=== PATIENT | male | born 1945 | race Caucasian/White ===

== ENCOUNTER 2023-10-25 16:45 | Emergency (ER) | payer MEDICARE, OTHER, SELFPAY ==
[2023-10-25 16:50] VITALS: BP 115/56
[2023-10-25 17:03] VITALS: BP 126/60
[2023-10-25 17:10] VITALS: BMI 29.0
[2023-10-25] MEDS: VALIUM INJECTION 2 MG IV (17:20)
[2023-10-25] MEDS: NSS 1000 IV (17:21)
--- NOTE | 2023-10-25 17:24 | ED.GENMED ---
History of Present Illness
General
Chief Complaint: Dizziness
Source: patient
Exam Limitations: none
Time Seen by Provider: 10/25/23 16:58
Travel History
Have you had any contact with someone who has COVID-19?: No
Do you have any symptoms of coronavirus? Fever > 100 degrees, chills, cough, shortness of breath, sore throat, loss of taste or smell, muscle aches, or headache?: No
History of Present Illness
History of Present Illness:
See MDM
Past History
Past History
ED Past Medical History: CAD, GERD, HTN, Hypercholesterolemia, [place] (X3) and Other ( Vertigo, constipation, hemorrhoids, stomach ulcers. Cellulitis,)
ED Past Surgical History: Cardiac (Stents, Open heart surgery, CABG) and Other (Carpal tunnel surgery. Patient has a history of rotator cuff surgery bilateral shoulder surgery, cardiac catheterization with stents,)
Social History
Tobacco: Former smoker
Alcohol: Occasional
Drug: None
Personal:
Living: with family
Employment: Employed
Family History
Family History: Hypertension
Phy Exam
Physical Exam
Physical Exam:
See MDM
Course
Orders/Labs/Results
Orders:
Orders
10/25/23 17:12
Electrocardiogram (*1) Urgent
Reason for Study: Vertigo / Dizzy
EKG- Treatment ONCE
0.9% Sodium Chloride 1000 ml [Nss] 1,000 ml IV BOLUS
diazePAM [Valium Injection] 2 mg IV NOW STA
10/25/23 17:14
Complete Blood Count/With Diff Urgent
Comprehensive Metabolic Panel Urgent
10/25/23 18:41
0.9% Sodium Chloride 500 ml [Nss] 500 ml IV BOLUS
Abnormal Lab Results
10/25/23
17:14
RBC 4.12 L 10^6/uL
(4.70-6.10)
Hgb 12.5 L g/dL
(13.0-18.0)
Hct 34.6 L %
(39.0-52.0)
RDW 14.6 H %
(11.5-14.5)
Neutrophils % 41.6 L %
(42.2-75.2)
Chloride 108 H mmol/L
(98-107)
BUN 30 H mg/dl
(9-20)
Creatinine 1.9 H mg/dL
(0.7-1.3)
Glucose 138 H mg/dl
(70-99)
Total Protein 6.1 L g/dl
(6.3-8.2)
10/25/23 17:14
10/25/23 17:14
Vital Signs
Initial and Last Documented VS:
Initial Vital Signs
Temp Pulse Resp BP Pulse Ox
98.1 F 76 16 115/56 94
10/25/23 16:50 10/25/23 16:50 10/25/23 16:50 10/25/23 16:50 10/25/23 16:50
Last Documented Vital Signs
Temp Pulse Resp BP Pulse Ox
98.1 F 66 20 117/60 98
10/25/23 16:50 10/25/23 18:30 10/25/23 18:30 10/25/23 18:00 10/25/23 18:30
MDM/Problems Addressed
Differential Diagnosis Includes:
HPI and MDM Narrative:
78-year-old male presenting with persistent dizziness. He was started on steroids a few months ago when he was diagnosed with RSV. Since then, he was dealing with hyperglycemia and intermittent dizziness. This has progressed. His PCP started
another steroid prescription but he stopped it early due to the side effects. 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 He has been trying Valium at home with no relief. He is trying his own Gerardo maneuvers with
no relief. Family at bedside is concerned because his dizziness has gotten to the point where he keeps falling
On exam, he has no cerebellar signs but he is dizzy. It is not red supple. Will give IV fluids and obtain basic blood work. If patient still symptomatic despite IV Valium, will admit for persistent dizziness
Physical exam
General: Well appearing and non-toxic
HEENT: protecting airway. Dry mucous membranes. Pupils equal reactive. TMs clear
Neck: supple
CV: No evidence of cyanosis. Regular rate and rhythm
Resp: No accessory muscle use
Abd: Non-distended
Extremities: No deformities
Neuro: alert. Normal finger-nose bilaterally
Psych: Normal affect
Skin: Intact
Problems Addressed including Acute and Chronic Conditions affecting care:
1. Dizziness
Acuity: acute
Prognosis: unstable
Details: Will give IV Valium and reassess
2. Dehydration
Acuity: acute
Prognosis: stable
Details: Will give IV fluids
Updates
6:45 PM surprisingly, patient states he is feeling much better. He states he feels comfortable going home. Will give another 500 cc of IV fluids. All symptoms resolving. Patient believes this could be related to his aortic stenosis. I did let
his kidney puller know that patient was here. His kidney puller asked patient to call the office on and they will speak on the phone
Differential Diagnosis (but not limited to): M�ni�re's disease, vertigo, CVA
Testing considered: CT head
Drug therapy (if applicable): OTC meds, please see d/c instruction regarding Rx drugs
Amount and/or Complexity of Data Reviewed
Clinical info obtained from: Patient
External data reviewed: N/A
Labs I independently reviewed (but not limited to): Elevated creatinine which is not far from baseline
Radiology: N/A
Pulse Ox: not hypoxic
EKG independently reviewed: sinus rhythm, normal axis, no STEMI
Physical Therapy Aide: Sinus rhythm
Critical Care: N/A
Risk of Complication:
Social Determinants of health: Good social support
Discussed with other providers: N/A
Escalation of Care includes Admit/Obs: After being observed in the Emergency Department, pt stable for discharge.
Occasional wrong word or 'sound a like' substitutions may have occurred due to the inherent limitations of voice recognition software. Read the chart carefully and recognize, using context, where substitutions have occurred.
*Critical Care Note
Total Time (30-74mins, 75-104mins- exclusive of procedures): Not Applicable
ED Attending Note
-
Portions of this chart may have been created with voice recognition software.� Occasional wrong word or��sound alike� substitutions may have occurred due to the inherent limitations of voice recognition software.
Discharge Plan
Departure
Patient Disposition: Home (Routine Discharge)
Date of Disposition: 10/25/23
Time of Disposition: 18:51
Patient with high blood pressure during this ER visit?: No
Discharge Problem:
Dizziness
Instructions: Dizziness
Prescriptions:
No Action
Repatha SureClick 140 MG/ML pen injector
140 mg SQ Q2W
aspirin 81 MG tablet,delayed release (DR/EC)
81 mg PO HS
acetaminophen [Tylenol Extra Strength] 500 mg Tablet
1,000 mg PO BIDPRN PRN (Reason: mild pain)
diazepam 2 mg Tablet
2 mg PO TID PRN (Reason: meniere disease)
Patient Comments:
10/25/2023, pt. filled this med. on 10/17/2023 for 30 tablets according to PDMP.
naproxen sodium [Aleve] 220 mg Tablet
440 mg PO BID PRN (Reason: mild pain)
metoprolol succinate 25 mg Tablet Extended Release 24 Hr
25 mg PO DAILY
methylprednisolone 4 mg Tablets,Dose Pack
0 mg PO PER PKG DIR
Patient Comments:
10/25/2023, pt. stopped taking this med. roughly 2 days ago because 'it was not working'; pt. filled this med. on 10/20/2023 for 6 days.
losartan 100 mg Tablet
100 mg PO HS
insulin lispro [Humalog KwikPen Insulin] 100 unit/mL Insulin Pen
0 sliding scale dose SC DIRECTED
Rx Instructions:
10/25/2023, if BS 200-250 = 4 units; 251-300 = 6 units; 301-350 = 8 units.
cholecalciferol (vitamin D3) 25 mcg (1,000 unit) Tablet
25 mcg PO HS
insulin glargine [Lantus Solostar U-100 Insulin] 100 unit/mL (3 mL) Insulin Pen
25 unit SC HS
dapagliflozin propanediol [Farxiga] 10 mg Tablet
10 mg PO DAILY
Referrals:
Quinn Guillory MD [Family Provider] -
Activity Restrictions/Additional Instructions:
As we discussed, it is not clear what is causing your dizziness.
Dr. Solis is aware that you are here today. He wants you to call the office on . When you speak to the triage nurse, please let the nurse know that Dr. Solis is expecting your call. He wants to speak to you on the phone.
Please return for any worsening symptoms.
You may return at any time if you have further concerns.
Interventions
Interventions:
*Risk Screen - Suicide Last Done: 10/25/23 16:50
*General Assessment Last Done: 10/25/23 16:50
*Neglect/Abuse Screening Last Done: 10/25/23 16:50
ED- Fall Risk Assessment Last Done: 10/25/23 17:10
*ED COVID-19 Vaccine History Last Done: 10/25/23 17:10
ED- Neurological Assessment Last Done: 10/25/23 17:10
ED- Cardiac Assessment Last Done: 10/25/23 17:10
ED Swallowing Screen Last Done: 10/25/23 18:33
[2023-10-25 17:40] LABS: ALT (SGPT) 23 U/L (0-50); AST (SGOT) 20 U/L (17-59); Albumin 3.6 g/dl (3.5-5.0); Alkaline Phosphatase 83 U/L (38-126); Blood Urea Nitrogen 30 mg/dl (9-20); Calcium 9.2 mg/dl (8.4-10.2); Carbon Dioxide 24 mmol/L (22-30); Chloride 108 mmol/L (98-107); Estimated Creatinine Clearance 30 ml/min; Glucose 138 mg/dl (70-99); Sodium 135 mmol/L (135-145); Total Bilirubin 0.6 mg/dl (0.2-1.3); Total Protein 6.1 g/dl (6.3-8.2); eGFR 35.88
[2023-10-25 17:41] LABS: % Basophils 0.7 % (0-2); % Eosinophils 2.4 % (0-6); % Immature Granulocytes 0.3 % (0-0.5); % Lymphocytes 47.4 % (20.5-51.1); % Monocytes 7.6 % (1.7-9.3); % Neutrophils 41.6 % (42.2-75.2); Absolute Basophils 0.1 10^3/uL (0-0.2); Absolute Eosinophils 0.2 10^3/uL (0-0.7); Absolute Lymphocytes 3.3 10^3/uL (1.2-3.4); Absolute Monocytes 0.5 10^3/uL (0.1-0.6); Absolute Neutrophils 2.9 10^3/uL (1.4-6.5); Hematocrit 34.6 % (39.0-52.0); Hemoglobin 12.5 g/dL (13.0-18.0); Mean Corp Hgb Conc. 36.1 g/dL (33.0-37.0); Mean Corpuscular Hgb 30.3 pg (27.0-31.0); Mean Platelet Volume 9.1 fL (7.4-10.4); Nucleated Red Blood Cells % 0 % (-); Platelet Count 208 10^3/uL (130-400); Red Blood Cell Count 4.12 10^6/uL (4.70-6.10); Red Cell Dist. Width 14.6 % (11.5-14.5)
[2023-10-25 18:00] VITALS: BP 117/60
[2023-10-25] MEDS: NSS 500 IV (18:43)
[2023-10-25 19:00] VITALS: BP 140/59
== END 2023-10-25 20:21 | disposition home or self-care (01) ==
LOC: EMR 16:45
PROVIDERS: EMERGENCY PHYSICIAN Student in an Organized Health Care Education/Training Program; FAMILY PHYSICIAN Family Medicine
DX: R42 Dizziness and giddiness (principal); I10 Essential (primary) hypertension; Z87.891 Personal history of nicotine dependence
CPT/HCPCS: 99284; 96374; 96361 ×2; 80053; 85025; 93005

== ENCOUNTER → 2023-11-22 07:40 | Outpatient (REF) | payer MEDICARE, OTHER, SELFPAY | LOC: RAD 07:40 | PROVIDERS: ATTENDING PHYSICIAN Internal Medicine Cardiovascular Disease; FAMILY PHYSICIAN Family Medicine | DX: R09.89 Other specified symptoms and signs involving the circulatory and respiratory systems (principal); I25.10 Atherosclerotic heart disease of native coronary artery without angina pectoris | CPT/HCPCS: 93880 ==

== ENCOUNTER → 2023-11-30 06:23 | Outpatient (REF) | payer MEDICARE, OTHER, SELFPAY ==
[2023-11-30 07:31] LABS: Albumin 4.2 g/dl (3.5-5.0); Blood Urea Nitrogen 29 mg/dl (9-20); Calcium 9.8 mg/dl (8.4-10.2); Carbon Dioxide 25 mmol/L (22-30); Chloride 108 mmol/L (98-107); Glucose 100 mg/dl (70-99); Phosphorus 4.8 mg/dl (2.5-4.5); Potassium 4.4 mmol/L (3.5-5.1); Sodium 139 mmol/L (135-145); eGFR 38.29
[2023-11-30 07:36] LABS: Urine Protein 10 mg/dl
[2023-11-30 07:40] LABS: Complement C3 114 mg/dl (88-165)
[2023-12-02 07:51] LABS: ANA, IgG Reflex to HEp-2 None Detected (None Detected)
== END ==
LOC: REG 06:23
PROVIDERS: ATTENDING PHYSICIAN Specialist
DX: I10 Essential (primary) hypertension (principal)
CPT/HCPCS: 36415; 80069; 82570; 84156; 86038; 86160

== ENCOUNTER → 2023-12-09 11:58 | Outpatient (REF) | payer MEDICARE, OTHER, SELFPAY | LOC: MRI 11:58 | PROVIDERS: ATTENDING PHYSICIAN Family Medicine | DX: H93.3X1 Disorders of right acoustic nerve (principal); H81.10 Benign paroxysmal vertigo, unspecified ear | CPT/HCPCS: 70553; A9575 ==

== ENCOUNTER 2023-12-17 19:07 | Emergency (ER) | payer MEDICARE, OTHER, SELFPAY ==
[2023-12-17 19:10] VITALS: BP 139/101
[2023-12-17 19:25] LABS: % Basophils 0.8 % (0-2); % Eosinophils 4.1 % (0-6); % Immature Granulocytes 0.2 % (0-0.5); % Lymphocytes 51.6 % (20.5-51.1); % Monocytes 8.1 % (1.7-9.3); % Neutrophils 35.2 % (42.2-75.2); Absolute Basophils 0.1 10^3/uL (0-0.2); Absolute Eosinophils 0.3 10^3/uL (0-0.7); Absolute Lymphocytes 3.4 10^3/uL (1.2-3.4); Absolute Monocytes 0.5 10^3/uL (0.1-0.6); Absolute Neutrophils 2.3 10^3/uL (1.4-6.5); Hematocrit 38.1 % (39.0-52.0); Hemoglobin 12.8 g/dL (13.0-18.0); Mean Corp Hgb Conc. 33.6 g/dL (33.0-37.0); Mean Corpuscular Volume 86.4 fL (80.0-94.0); Mean Platelet Volume 8.5 fL (7.4-10.4); Nucleated Red Blood Cells % 0 % (-); Platelet Count 193 10^3/uL (130-400); Red Blood Cell Count 4.41 10^6/uL (4.70-6.10); Red Cell Dist. Width 12.9 % (11.5-14.5); White Blood Cell Count 6.6 10^3/uL (4.8-10.8)
[2023-12-17 19:54] LABS: Blood Urea Nitrogen 33 mg/dl (9-20); Calcium 9.6 mg/dl (8.4-10.2); Carbon Dioxide 24 mmol/L (22-30); Chloride 107 mmol/L (98-107); Creatine Phosphokinase 171 U/L (55-170); Glucose 99 mg/dl (70-99); Magnesium 2.3 mg/dl (1.6-2.3); Potassium 4.7 mmol/L (3.5-5.1); Sodium 136 mmol/L (135-145); eGFR 31.82
--- NOTE | 2023-12-17 21:22 | ED.GENMED ---
Addendum entered and electronically signed by Jovan Mims DO 12/17/23 23:46:
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
renal insufficiency, he does want a more steroid states he been diabetic 20 took 3 courses for upper respiratory infection
Original Note:
History of Present Illness
General
Chief Complaint: Musculo-Skeletal Complaint
Source: patient, records and spouse
Exam Limitations: none
Time Seen by Provider: 12/17/23 20:48
Nursing documentation reviewed up to this point in time: agreed with
Travel History
Have you had any contact with someone who has COVID-19?: No
Do you have any symptoms of coronavirus? Fever > 100 degrees, chills, cough, shortness of breath, sore throat, loss of taste or smell, muscle aches, or headache?: No
History of Present Illness
History of Present Illness:
Patient 78-year-old male who presents with multiple issues acute issue was an exacerbation of his chronic low back pain is lumbar radiculopathy spinal stenosis, exacerbated by playing golf, he took some extra gabapentin in hopes that he would be
able to play a full round elevated to 13 holes feel some numbness in the lateral side of his calf on the left, also into his back, also tells me has had about 2 weeks of upper extremity weakness, bilaterally trouble lifting a box up over his head,
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
Past History
Past History
ED Past Medical History: CAD, GERD, HTN, Hypercholesterolemia, [place] (X3) and Other ( Vertigo, constipation, hemorrhoids, stomach ulcers. Cellulitis,)
ED Past Surgical History: Cardiac (Stents, Open heart surgery, CABG) and Other (Carpal tunnel surgery. Patient has a history of rotator cuff surgery bilateral shoulder surgery, cardiac catheterization with stents,)
Social History
Tobacco: Former smoker
Alcohol: Occasional
Drug: None
Personal:
Living: with family
Employment: Employed
Family History
Family History: Hypertension
Review of Systems
Review of Systems
All Other Systems: Not applicable
Constitutional: Reports fatigue; Denies fever or chills
EENT: Reports no symptoms
Respiratory: Reports no symptoms
Cardiac: Reports no symptoms
ABD/GI: Reports no symptoms
: Reports no symptoms
Musculoskeletal: Reports muscle stiffness and back pain
Neurological: Reports weakness and numbness; Denies dizzy
Endocrine: Reports no symptoms
Hematologic/Lymphatic: Reports no symptoms
Phy Exam
Physical Exam
Physical Exam:
Physical Exam
General: no apparent distress, not acutely ill
Neck: No jaundice
Heart: s1/s2 regular rate and rhythm, no murmur. equal radial pulses.
Lungs: no acute respiratory distress. clear bilaterally
Abdomen: Nontender
Neuro: alert and oriented. 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
Skin: no rash
Psychiatric: well kept. interactive and cooperative
Extremities: no edema.
Course
Orders/Labs/Results
Orders:
Orders
12/17/23 19:19
Basic Metabolic Panel Urgent
CPK [Creatine Phosphokinase] Urgent
Complete Blood Count/With Diff Urgent
Magnesium Urgent
12/17/23 21:15
0.9% Sodium Chloride 500 ml [Nss] 500 ml IV BOLUS
diazePAM [Valium Injection] 5 mg IV NOW STA
12/17/23 21:25
CT Cervical Spine W/o Iv Contr Urgent
Comment:
Reason For Exam: arm weakness
CT Head W/o Iv Contrast Urgent
Comment:
Reason For Exam: weakness
12/17/23 22:06
Urinalysis Reflex To Culture Urgent
Date Specimen was Collected: 12/17/23
Time Specimen was Collected: 22:05
Abnormal Lab Results
12/17/23 12/17/23
19:19 22:06
RBC 4.41 L 10^6/uL
(4.70-6.10)
Hgb 12.8 L g/dL
(13.0-18.0)
Hct 38.1 L %
(39.0-52.0)
Neutrophils % 35.2 L %
(42.2-75.2)
Lymphocytes % 51.6 H %
(20.5-51.1)
BUN 33 H mg/dl
(9-20)
Creatinine 2.1 H mg/dL
(0.7-1.3)
Creatine Kinase 171 H U/L
(55-170)
Urine Glucose 3+ A
(Negative)
12/17/23 19:19
12/17/23 19:19
Vital Signs
Initial and Last Documented VS:
Initial Vital Signs
Temp Pulse Resp BP Pulse Ox
97.6 F 71 18 139/101 98
12/17/23 19:10 12/17/23 19:10 12/17/23 19:10 12/17/23 19:10 12/17/23 19:10
Last Documented Vital Signs
Temp Pulse Resp BP Pulse Ox
97.6 F 60 17 149/67 97
12/17/23 19:10 12/17/23 23:11 12/17/23 23:11 12/17/23 23:11 12/17/23 23:11
*Critical Care Note
Total Time (30-74mins, 75-104mins- exclusive of procedures): Not Applicable
Update Note
Update Note:
10:30 PM update labs noted not too far from his baseline, urine noted
Prior imaging reports reviewed,
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
Check CT of cervical spine to rule out stenosis,
Ultimately suspect he may require outpatient follow-up with PCP and/or neurologist
Not seeing any indication for inpatient admission
[address] reports noted
ED Attending Note
-
Portions of this chart may have been created with voice recognition software.� Occasional wrong word or��sound alike� substitutions may have occurred due to the inherent limitations of voice recognition software.
Discharge Plan
Departure
Patient Disposition: Home (Routine Discharge)
Date of Disposition: 12/17/23
Time of Disposition: 23:26
Patient with high blood pressure during this ER visit?: No
Condition: Good
Discharge Problem:
Radicular low back pain
Instructions: Spinal stenosis, Spinal Stenosis Strengthening Exercises, Radiculopathy
Prescriptions:
No Action
Repatha SureClick 140 MG/ML pen injector
140 mg SQ Q2W
aspirin 81 MG tablet,delayed release (DR/EC)
81 mg PO HS
acetaminophen [Tylenol Extra Strength] 500 mg Tablet
1,000 mg PO BIDPRN PRN (Reason: mild pain)
diazepam 2 mg Tablet
2 mg PO TID PRN (Reason: meniere disease)
Patient Comments:
10/25/2023, pt. filled this med. on 10/17/2023 for 30 tablets according to PDMP.
naproxen sodium [Aleve] 220 mg Tablet
440 mg PO BID PRN (Reason: mild pain)
metoprolol succinate 25 mg Tablet Extended Release 24 Hr
25 mg PO DAILY
methylprednisolone 4 mg Tablets,Dose Pack
0 mg PO PER PKG DIR
Patient Comments:
10/25/2023, pt. stopped taking this med. roughly 2 days ago because 'it was not working'; pt. filled this med. on 10/20/2023 for 6 days.
losartan 100 mg Tablet
100 mg PO HS
insulin lispro [Humalog KwikPen Insulin] 100 unit/mL Insulin Pen
0 sliding scale dose SC DIRECTED
Rx Instructions:
10/25/2023, if BS 200-250 = 4 units; 251-300 = 6 units; 301-350 = 8 units.
cholecalciferol (vitamin D3) 25 mcg (1,000 unit) Tablet
25 mcg PO HS
insulin glargine [Lantus Solostar U-100 Insulin] 100 unit/mL (3 mL) Insulin Pen
25 unit SC HS
dapagliflozin propanediol [Farxiga] 10 mg Tablet
10 mg PO DAILY
Referrals:
Quinn Guillory MD [Family Provider] - Next open appointment
Joseluis Pride MD [Active] - Next open appointment
Interventions
Interventions:
*Risk Screen - Suicide Last Done: 12/17/23 19:10
*General Assessment Last Done: 12/17/23 19:10
*Neglect/Abuse Screening Last Done: 12/17/23 19:10
ED- Fall Risk Assessment Last Done: 12/17/23 21:06
*ED COVID-19 Vaccine History Last Done: 12/17/23 21:06
ED-Musculoskeletal Assessment Last Done: 12/17/23 21:06
Discharge Date and Time
Print Language: PERSIAN
[2023-12-17] MEDS: NSS 500 IV (21:26)
[2023-12-17] MEDS: VALIUM INJECTION 5 MG IV (21:26)
[2023-12-17 22:13] LABS: Urine Albumin Negative (Neg - Trace); Urine Bilirubin Negative (Negative); Urine Character Clear (Clear); Urine Color Yellow; Urine Glucose 3+ (Negative); Urine Ketone Negative (Negative); Urine Leukocyte Negative (Negative); Urine Nitrite Negative (Negative); Urine Occult Blood Negative (Negative); Urine Urobilinogen Negative (Neg - 1+)
[2023-12-17 23:11] VITALS: BP 149/67
== END 2023-12-18 00:06 | disposition home or self-care (01) ==
LOC: EMR 19:07
PROVIDERS: Emergency Medicine; EMERGENCY PHYSICIAN Emergency Medicine; FAMILY PHYSICIAN Family Medicine
DX: M54.50 Low back pain, unspecified (principal); I25.10 Atherosclerotic heart disease of native coronary artery without angina pectoris; K21.9 Gastro-esophageal reflux disease without esophagitis; I25.2 Old myocardial infarction; I12.9 Hypertensive chronic kidney disease with stage 1 through stage 4 chronic kidney disease, or unspecified chronic kidney disease; E11.22 Type 2 diabetes mellitus with diabetic chronic kidney disease; E78.00 Pure hypercholesterolemia, unspecified
CPT/HCPCS: 99284; 96374; 96361; 70450; 72125; 80048; 81003; 82550; 83735; 85025

== ENCOUNTER → 2024-04-09 06:21 | Outpatient (REF) | payer MEDICARE, OTHER, SELFPAY ==
[2024-04-09 07:37] LABS: ALT (SGPT) 22 U/L (0-50); AST (SGOT) 23 U/L (17-59); Alkaline Phosphatase 87 U/L (38-126); Blood Urea Nitrogen 33 mg/dl (9-20); Calcium 9.8 mg/dl (8.4-10.2); Carbon Dioxide 25 mmol/L (22-30); Chloride 105 mmol/L (98-107); Glucose 128 mg/dl (70-99); HDL Cholesterol 32 mg/dl; LDL Cholesterol, Calculated 50 mg/dl; Potassium 4.6 mmol/L (3.5-5.1); Sodium 137 mmol/L (135-145); Total Bilirubin 0.4 mg/dl (0.2-1.3); Total Cholesterol 122 mg/dl (50-199); Total Protein 6.5 g/dl (6.3-8.2); Triglyceride 203 mg/dl (10-149); Very Low Density Lipoprotein 40 mg/dl (0-30); eGFR 38.29
[2024-04-09 08:51] LABS: Glycohemoglobin (HgbA1c) 6.6 % (4.0-5.6)
[2024-04-10 16:13] LABS: Intact PTH 63.6 pg/ml (13.6-85.8)
== END ==
LOC: REG 06:21
PROVIDERS: ATTENDING PHYSICIAN Specialist; FAMILY PHYSICIAN Family Medicine
DX: E78.5 Hyperlipidemia, unspecified (principal); E11.9 Type 2 diabetes mellitus without complications; I10 Essential (primary) hypertension
CPT/HCPCS: 36415; 80053; 80061; 83036; 83970

== ENCOUNTER 2024-06-18 17:13 | Emergency (ER) | payer MEDICARE, OTHER, SELFPAY ==
[2024-06-18 17:15] VITALS: BP 125/64
--- NOTE | 2024-06-18 17:51 | ED.GENMED ---
History of Present Illness
General
Chief Complaint: Facial Problem
Source: patient
Exam Limitations: none
Time Seen by Provider: 06/18/24 17:29
Nursing documentation reviewed up to this point in time: agreed with
History of Present Illness
History of Present Illness:
78-year-old male presents emergency room complaining of left-sided headache and swelling. He just started the drug Nurtec for migraines.
Past History
Past History
ED Past Medical History: CAD, GERD, HTN, Hypercholesterolemia, [place] (X3) and Other ( Vertigo, constipation, hemorrhoids, stomach ulcers. Cellulitis,)
ED Past Surgical History: Cardiac (Stents, Open heart surgery, CABG) and Other (Carpal tunnel surgery. Patient has a history of rotator cuff surgery bilateral shoulder surgery, cardiac catheterization with stents,)
Social History
Tobacco: Former smoker
Alcohol: Occasional
Drug: None
Personal:
Living: with family
Employment: Employed
Family History
Family History: Hypertension
Review of Systems
Review of Systems
Allergies reviewed?: Yes
All Other Systems: Not applicable
Constitutional: Reports no symptoms
EENT: Reports no symptoms
Respiratory: Reports no symptoms
Cardiac: Reports no symptoms
ABD/GI: Reports no symptoms
: Reports no symptoms
Musculoskeletal: Reports no symptoms
Skin: Reports no symptoms
Neurological: Reports headache
Endocrine: Reports no symptoms
Hematologic/Lymphatic: Reports no symptoms
Psychiatric: Reports no symptoms
Phy Exam
Physical Exam
Physical Exam:
Physical Exam
General: no apparent distress, not acutely ill
Neck: supple. no meningeal signs. normal posterior pharynx
Heart: s1/s2 regular rate and rhythm, no murmur. equal radial
pulses.
HEENT: Pupils equal round reactive to light, EOMI
Lungs: no acute respiratory distress. clear bilaterally
Abdomen: normal bowel sounds. not tender. no CVAT
Neuro: alert and oriented. no focal neurological deficits cranial nerves II through XII intact
Skin: no rash
Psychiatric: well kept. interactive and cooperative
Extremities: no edema. no calf tenderness. negative homans. good distal pulses
Course
Orders/Labs/Results
Orders:
Orders
06/18/24 17:50
CT Head W/o Iv Contrast Urgent
Comment:
Reason For Exam: left side headache
Vital Signs
Initial and Last Documented VS:
Initial Vital Signs
Temp Pulse Resp BP Pulse Ox
98.1 F 56 18 125/64 98
06/18/24 17:15 06/18/24 17:15 06/18/24 17:15 06/18/24 17:15 06/18/24 17:15
Last Documented Vital Signs
Temp Pulse Resp BP Pulse Ox
98.1 F 56 16 125/64 98
06/18/24 17:15 06/18/24 17:15 06/18/24 18:00 06/18/24 17:15 06/18/24 17:15
MDM/Problems Addressed
Differential Diagnosis Includes:
Medication reaction, migraine
MDM/Problems Addressed:
78-year-old male with headache, likely migraine. Patient declines to stay for CT head. Doubt intracranial hemorrhage. Stable for discharge. Patient describes swelling, but is not seen well by my exam.
Chronic conditions affecting care: Other (Migraines)
*Critical Care Note
Total Time (30-74mins, 75-104mins- exclusive of procedures): Not Applicable
Data Reviewed
Prescriptions/Medications Considered But Not Given:
Benadryl and Reglan declined by patient
Further Testing Considered But Not Given:
CT head declined by patient
Patient Management
Social determinants of health affecting care: Living situation and Strong social support
Escalation/DeEscalation of care consider admission/obs:
Admit not indicated
ED Attending Note
-
Portions of this chart may have been created with voice recognition software.� Occasional wrong word or��sound alike� substitutions may have occurred due to the inherent limitations of voice recognition software.
Discharge Plan
Departure
Patient Disposition: Home (Routine Discharge)
Date of Disposition: 06/18/24
Time of Disposition: 19:01
Patient with high blood pressure during this ER visit?: Yes
Condition: Good
Discharge Problem:
Headache
Instructions: Headache, Adult ED, BLOOD PRESSURE
Prescriptions:
No Action
Repatha SureClick 140 MG/ML pen injector
140 mg SQ Q2W
aspirin 81 MG tablet,delayed release (DR/EC)
81 mg PO HS
acetaminophen [Tylenol Extra Strength] 500 mg Tablet
1,000 mg PO BIDPRN PRN (Reason: mild pain)
diazepam 2 mg Tablet
2 mg PO TID PRN (Reason: meniere disease)
Patient Comments:
10/25/2023, pt. filled this med. on 10/17/2023 for 30 tablets according to PDMP.
naproxen sodium [Aleve] 220 mg Tablet
440 mg PO BID PRN (Reason: mild pain)
metoprolol succinate 25 mg Tablet Extended Release 24 Hr
25 mg PO DAILY
methylprednisolone 4 mg Tablets,Dose Pack
0 mg PO PER PKG DIR
Patient Comments:
10/25/2023, pt. stopped taking this med. roughly 2 days ago because 'it was not working'; pt. filled this med. on 10/20/2023 for 6 days.
losartan 100 mg Tablet
100 mg PO HS
insulin lispro [Humalog KwikPen Insulin] 100 unit/mL Insulin Pen
0 sliding scale dose SC DIRECTED
Rx Instructions:
10/25/2023, if BS 200-250 = 4 units; 251-300 = 6 units; 301-350 = 8 units.
cholecalciferol (vitamin D3) 25 mcg (1,000 unit) Tablet
25 mcg PO HS
insulin glargine [Lantus Solostar U-100 Insulin] 100 unit/mL (3 mL) Insulin Pen
25 unit SC HS
dapagliflozin propanediol [Farxiga] 10 mg Tablet
10 mg PO DAILY
oxycodone 5 mg tablet
5 mg PO Q6H PRN (Reason: Pain) Qty: 14 0RF
Referrals:
UNKNOWN - PT DOES,NOT KNOW [Family Provider] -
Interventions
Interventions:
*Risk Screen - Suicide Last Done: 06/18/24 17:15
*General Assessment Last Done: 06/18/24 17:15
*Neglect/Abuse Screening Last Done: 06/18/24 17:15
*ED COVID-19 Vaccine History Last Done: 06/18/24 17:15
ED- Neurological Assessment Last Done: 06/18/24 18:31
ED-Skin Assessment Last Done: 06/18/24 18:31
Discharge Date and Time
Print Language: TURKISH
[2024-06-18 19:27] VITALS: BP 137/61
== END 2024-06-18 19:28 | disposition home or self-care (01) ==
LOC: EMR 17:13
PROVIDERS: EMERGENCY PHYSICIAN Emergency Medicine
DX: R51.9 Headache, unspecified (principal); I25.10 Atherosclerotic heart disease of native coronary artery without angina pectoris; K21.9 Gastro-esophageal reflux disease without esophagitis; I10 Essential (primary) hypertension; E78.00 Pure hypercholesterolemia, unspecified; I25.2 Old myocardial infarction; Z82.49 Family history of ischemic heart disease and other diseases of the circulatory system; Z87.19 Personal history of other diseases of the digestive system; Z87.891 Personal history of nicotine dependence; Z95.1 Presence of aortocoronary bypass graft; Z95.5 Presence of coronary angioplasty implant and graft
CPT/HCPCS: 99282

== ENCOUNTER → 2024-07-18 07:04 | Outpatient (REF) | payer MEDICARE, OTHER, SELFPAY ==
[2024-07-18 09:39] LABS: Glycohemoglobin (HgbA1c) 6.7 % (4.0-5.6)
[2024-07-18 10:33] LABS: ALT (SGPT) 23 U/L (0-50); AST (SGOT) 23 U/L (17-59); Albumin 4.3 g/dl (3.5-5.0); Alkaline Phosphatase 91 U/L (38-126); Blood Urea Nitrogen 45 mg/dl (9-20); Calcium 9.8 mg/dl (8.4-10.2); Carbon Dioxide 19 mmol/L (22-30); Chloride 111 mmol/L (98-107); Glucose 142 mg/dl (70-99); HDL Cholesterol 41 mg/dl; LDL Cholesterol, Calculated 62 mg/dl; Microalbumin, Random Urine 1.5 mg/dl (0.6-1.7); Microalbumin/creatinine Ratio 17.1 mg/g; Potassium 4.7 mmol/L (3.5-5.1); Sodium 145 mmol/L (135-145); Total Bilirubin 0.2 mg/dl (0.2-1.3); Total Cholesterol 143 mg/dl (50-199); Total Protein 6.9 g/dl (6.3-8.2); Triglyceride 202 mg/dl (10-149); Very Low Density Lipoprotein 40 mg/dl (0-30); eGFR 38.29
== END ==
LOC: REG 07:04
PROVIDERS: ATTENDING PHYSICIAN Family Medicine
DX: E11.9 Type 2 diabetes mellitus without complications (principal); E78.5 Hyperlipidemia, unspecified
CPT/HCPCS: 36415; 80053; 80061; 82043; 82570; 83036; 86140

== ENCOUNTER 2024-07-27 10:51 | Day surgery (SDC) | payer MEDICARE, OTHER, SELFPAY ==
[2024-07-24 09:00] VITALS: BMI 28.6
[2024-07-27] VITALS (15 sets, daily range): BP systolic 126–206; BP diastolic 51–85
[2024-07-27] MEDS: LOW STRENGTH ASPIRIN 81 MG PO (11:40)
[2024-07-27] MEDS: NSS 242 ML IV (11:45)
--- NOTE | 2024-07-27 14:12 | CM ---
Pricing on Brilinta 90mg BID through the [facility] is $0 copay. Brilinta is in stock at the [facility].
[2024-07-27] MEDS: NSS 1000 IV (14:31)
--- NOTE | 2024-07-27 14:40 | PTCARENOTE ---
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 R groin is c/d/i. No hematoma/bleeding noted. Pt has no c/o CP/discomfort at this time. Oriented pt to room. Admission completed. Activity restrictions reviewed w/ pt. Verbalizes understanding. Currently in bed; call montoya
w/in reach.
--- NOTE | 2024-07-27 14:59 | CM ---
Chart reviewed. Patient is independent of ADLS, lives with his in a 2 [address], 1 DULCE, 0 DME. Plan is for the patient to return home. CM to follow
[2024-07-27 15:37] LABS: ACT-LR - POC > 397 Seconds (116-155)
--- NOTE | 2024-07-27 16:10 | ITS.CL.CATH ---
Heating And Cooling Systems Engineer - Catheterization
Cardiac Catheterization
Procedure Report:
CARDIAC CATHETERIZATION REPORT
Date of Procedure: 07/27/2024
Referring: Bob Solis MD
Indication: Unstable angina with prior CABG
�
HEMODYNAMIC DATA
AO: 122/56
LV: 132/14
There is an 11 mmHg gradient across the aortic valve consistent with mild aortic stenosis
�
LEFT VENTRICULOGRAPHY: Not performed due to creatinine 2.0
�
CORONARY ANGIOGRAPHY
Dominance: Right
Left Main: Short with moderate stenosis�of note this vessel was flow-limiting by iFR criteria on preop cath from 2019
LAD: 70% ostial LAD stenosis new compared with prior study from 2020. The mid LAD stent remains widely patent. The distal LAD has mild luminal disease. The bifurcating major diagonal branch has 30% ostial stenosis and fills antegrade and via a
patent CHARLINE graft
Circumflex: The circumflex proper has mild luminal irregularities. OM1 is tiny. OM 2 is moderate in size with diffuse mild to moderate disease. This vessel fills antegrade and via a patent vein graft. The circumflex continues on to supply a tiny
OM 3 and a single moderate-sized left posterolateral branch.
RCA: The RCA remains occluded at its origin.A patent vein graft touches down into the mid PDA and fills the small distal PDA and backfills through the proximal PDA to supply 3 right posterolateral branches
Bypass grafts:
1. The GIL graft to the diagonal branch is patent with 70% touchdown stenosis similar in appearance to the prior study from 2020
2. The vein graft to the OM 2 remains widely patent with excellent runoff
3. The vein graft to the RPDA remains widely patent with excellent runoff
Angioplasty: At the conclusion the diagnostic study we proceeded with intervention to treat the new 70% ostial LAD lesion. Heparin was used for anticoagulation. An EBU 3.5 guide catheter used. A BMW wire was advanced into the LAD and
predilatation accomplished with a 2.5 x 12 NC Emerge balloon inflated to 14 maki. We then placed a 3.5 x 15 Xience judah point ZAHIDA to cover the LAD and left main disease. The stent was deployed at 16 maki and postdilated with a 3.5 NC emerge to 17
maki. The final angiographic result was outstanding. There were no procedural complications.
�
Closure Device: 6 German Angio-Seal RFA
�
Radiation (mGy): 1081
DAP (cm2.Gy): 60.9
Fluoroscopy time: 9.6 minutes
�
CONCLUSIONS
1:�Accelerated angina presentation
2:�Mild aortic stenosis with mean gradient 11 mmHg
3. Severe ho-chunk multivessel CAD with patent GLI-diagonal, SVG-OM 2, and SVG-RPDA bypass grafts
4. Stenting of left main coronary artery and ostial/proximal LAD disease using 3.5 x 15 Xience ZAHIDA
5. He has history of rash with Plavix and will be treated with aspirin and Brilinta
�
�
Copy to: Bob Solis MD, Quinn Diallo MD
�
Bob Solis MD, [facility], [facility]
--- NOTE | 2024-07-27 17:23 | PTCARENOTE ---
Pt rang call montoya complaining of trouble breathing. He says 'he just cant catch his breath.' First BP 206/85. Repeat BP 161/65. Tele reads SB 40-50s and can dip to 35 at times. No complaints of CP. Will LICONA notified and at bedside.
--- NOTE | 2024-07-27 17:25 | PTCARENOTE ---
Addendum entered by Alisha Springer RN 07/27/24 17:34:
Reassessed pt and pt reports feeling better. BP 152/67. Currently OOB in chair eating dinner. Call lindsay w/in reach.
Original Note:
Pt rang call lindsay complaining of trouble breathing. He says 'he just cant catch his breath.' First BP 206/85. Repeat BP 161/65. Tele reads SB 40-50s and can dip to 35 at times. POX 100% RA. No complaints of CP. 2L NC applied for comfort. Will LICONA
notified and at bedside.
[2024-07-27] MEDS: COZAAR 100 MG PO (21:30)
[2024-07-27] MEDS: BRILINTA 90 MG PO (21:31)
[2024-07-27] MEDS: TOPROL XL 25 MG PO (21:31)
[2024-07-28] MEDS: TYLENOL 650 MG PO (00:38)
[2024-07-28 04:43] VITALS: BP 162/56
[2024-07-28 05:12] LABS: Hemoglobin 13.5 g/dL (13.0-18.0); Mean Corp Hgb Conc. 35.5 g/dL (33.0-37.0); Mean Corpuscular Hgb 30.1 pg (27.0-31.0); Mean Corpuscular Volume 84.6 fL (80.0-94.0); Platelet Count 165 10^3/uL (130-400); Red Blood Cell Count 4.49 10^6/uL (4.70-6.10); Red Cell Dist. Width 13.9 % (11.5-14.5); White Blood Cell Count 7.3 10^3/uL (4.8-10.8)
[2024-07-28 05:38] LABS: Blood Urea Nitrogen 26 mg/dl (9-20); Calcium 9.4 mg/dl (8.4-10.2); Carbon Dioxide 20 mmol/L (22-30); Chloride 110 mmol/L (98-107); Estimated Creatinine Clearance 37 ml/min; Glucose 136 mg/dl (70-99); HDL Cholesterol 34 mg/dl; LDL Cholesterol, Calculated 34 mg/dl; Potassium 4.2 mmol/L (3.5-5.1); Sodium 142 mmol/L (135-145); Total Cholesterol 124 mg/dl (50-199); Triglyceride 282 mg/dl (10-149); Very Low Density Lipoprotein 56 mg/dl (0-30); eGFR 47.65
[2024-07-28 08:12] VITALS: BP 154/68
--- NOTE | 2024-07-28 08:14 | W.PN.CD ---
Addendum entered and electronically signed by Carlos Lara MD 07/28/24 09:40:
I saw and examined the patient.
The SECURITY ENGINEER's note was reviewed and I agree with the note.
Comment: D/c today
Original Note:
Today's Communication / Plan
-
Likely home today after seen by Dr. Lara. Brilinta has been added and we discussed the importance of this medication- see body of note below for details of our conversation.
Impression / Plan
-
78 y/o male (patient of Dr. Solis) with CAD with hx CABG, carotid stenosis, aortic stenosis, hypertension, dyslipidemia, and DM who is now s/p stenting as detailed below.
CAD:
-s/p cardiac cath 07/27/[address] Solis. Findings and intervention: 1. Accelerated angina presentation 2. Mild aortic stenosis with mean gradient 11 mmHg 3. Severe [place] multivessel CAD with patent GIL-diagonal, SVG-OM 2, and SVG-RPDA bypass
grafts. 4. Stenting of left main coronary artery and ostial/proximal LAD disease using 3.5 x 15 Xience ZAHIDA 5. He has history of rash with Plavix and will be treated with aspirin and Brilinta.
-continue ASA and Brilinta- Of note, he thinks the Brilinta is making him have episodes of shortness of breath. He told me that he will take it, but will stop it if this continues. I told him very clearly that if he were to stop it, that he may
from that choice with recent LM stent as above. He told me he understands that. I told him that rather than stopping it, if he continued to have the shortness of breath, he should call Dr. Solis and review alternatives. In summary, I told him that
he should NOT stop the second antiplatelet agent until discussion with his licensed staff mft about other options. Will discuss and review with Dr. Lara. Patient told me he will be leaving today no matter what. Fortunately, I believe that he is safe
for discharge today, provided that he takes his medicines. He has been up and moving without issue.
-Right femoral cath site stable without hematoma
-renal function improved today when compared with yesterday
HTN:
-continue losartan, metoprolol, and Imdur
-elevated at times here
-reassess as OP
Aortic stenosis:
-mild on cath
-follow over time as OP
Dyslipidemia:
-continue Repatha
Physical Exam
Vital Signs/Labs
Vital Signs
Temp Pulse Resp BP Pulse Ox
97.7 F 53 18 154/51 97
07/28/24 08:10 07/28/24 08:10 07/28/24 08:10 07/27/24 21:31 07/28/24 08:10
07/28/24 04:50
07/28/24 04:50
Triglycerides 282 mg/dl (10-149) H 07/28/24 04:50
LDL Cholesterol, Calc 34 mg/dl 07/28/24 04:50
VLDL Cholesterol, Calc 56 mg/dl (0-30) H 07/28/24 04:50
HDL Cholesterol 34 mg/dl 07/28/24 04:50
Physical Exam
Constitutional: No acute distress
EENT: Anicteric
Cardiovascular: Rhythm & rate is regular (SB/SR) and Systolic murmur present (II/ systolic murmur)
Respiratory: Respiratory effort normal and Lungs clear to auscul.
Neuro/Psych: AO x 3
Other: Cath Site (right femoral cath site stable)
Data Reviewed
-
Date of Service: July 28, 2024
EKG: Tracing Personally Visualized and interpreted (SB 50 BPM) and Other (tele SB/SR)
Labs: Labs Reviewed by me
[2024-07-28] MEDS: TOPROL XL 25 MG PO (08:28)
[2024-07-28] MEDS: BRILINTA 90 MG PO (08:28)
[2024-07-28] MEDS: FARXIGA 10 MG PO (08:29)
[2024-07-28] MEDS: IMDUR (EXTENDED RELEASE) 30 MG PO (08:29)
--- NOTE | 2024-07-28 09:26 | PTCARENOTE ---
Assumed care of pt from night RN. Pt received asleep, but wakens easily to verbal. VSS, CM shows SB 40-50's, POX 97% on RA. Pt refused breakfast, 'I don't eat in the hospital'. Pt very hesitant in taking Brillinta, states that he hasn't slept in
two days due to SOB from Brillinta. WOOD CARVING LATHE OPERATOR, Mirella reviewed the need to take continuously due the blockages in his heart. POX 97% on RA.
--- NOTE | 2024-07-28 11:00 | PTCARENOTE ---
All D/C info reviewed with pt and spouse, all questions answered. Pt D/C home with spouse.
--- NOTE | 2024-07-28 11:06 | W.DS.TRANS ---
DC Summary - Historical Site Guide
-
Discharge Instructions:
Discharge Diagnosis/Procedures Angioplasty with stent to left main artery
Diet Low Cholesterol,Diabetic, Carb Controlled,2 Gram
Sodium,Low Fat
Activity Other activity
Additional Activity see activity restrictions on attached form
Driving Restrictions No driving for 24 hours
Bathing Restrictions OK to Shower
Other Services Cardiac Rehab
Instructions:
Stand-Alone Forms: DC Instructions- Cath/EP Lab
Changes to Home Medications: Yes
Discharge Medications:
DC Medications w/original date entered in [facility]
evolocumab 140 mg/mL subcutaneous pen injector (Repatha SureClick) 140 mg SQ Q2W High Cholesterol 12/19/20
aspirin 81 mg tablet,delayed release 81 mg PO HS Blood Clot Prevention/Tx 11/07/21
cholecalciferol (vitamin D3) 25 mcg (1,000 unit) tablet 25 mcg PO HS Supplement 10/25/23
dapagliflozin propanediol 10 mg tablet (Farxiga) 10 mg PO DAILY Diabetes 10/25/23
diazepam 2 mg tablet 2 - 8 mg PO TID PRN meniere disease 10/25/23
losartan 100 mg tablet 100 mg PO HS Blood Pressure 10/25/23
metoprolol succinate 25 mg tablet,extended release 24 hr 25 mg PO BID Blood Pressure 10/25/23
oxycodone 5 mg tablet 5 mg PO Q6H PRN Pain #14 tabs 12/17/23
acetaminophen 650 mg tablet,extended release 650 mg PO PRN PRN pain 07/23/24
xbhtdoe-pbyfzmsfuscyf-mzzhtkwc 250 mg-250 mg-65 mg tablet (Excedrin Migraine) 1 tab PO PRN PRN Vestibular Migraines 07/23/24
isosorbide mononitrate 30 mg tablet,extended release 24 hr 30 mg PO DAILY Blood Pressure 07/23/24
nitroglycerin 0.4 mg sublingual tablet 0.4 mg sublingual Q5-15M PRN chest pain 07/23/24
rimegepant 75 mg disintegrating tablet (Nurtec ODT) 75 mg PO Q48H Vestibular Migraines 07/23/24
ticagrelor 90 mg tablet (Brilinta) 90 mg PO BID #180 tabs 07/27/24
Home Medication Changes
Brilinta added
Pending Results: No
== END 2024-07-28 11:00 | disposition home or self-care (01) ==
LOC: CATH 10:51
PROVIDERS: Nurse Practitioner Adult Health; ATTENDING PHYSICIAN Internal Medicine Cardiovascular Disease; FAMILY PHYSICIAN Family Medicine; OTHER PHYSICIAN Internal Medicine Cardiovascular Disease
DX: I25.110 Atherosclerotic heart disease of native coronary artery with unstable angina pectoris (principal); Z95.1 Presence of aortocoronary bypass graft; I35.0 Nonrheumatic aortic (valve) stenosis; E78.5 Hyperlipidemia, unspecified; N18.32 Chronic kidney disease, stage 3b; I12.9 Hypertensive chronic kidney disease with stage 1 through stage 4 chronic kidney disease, or unspecified chronic kidney disease; E11.22 Type 2 diabetes mellitus with diabetic chronic kidney disease; Z95.5 Presence of coronary angioplasty implant and graft; Z79.02 Long term (current) use of antithrombotics/antiplatelets; Z79.82 Long term (current) use of aspirin; Z87.891 Personal history of nicotine dependence; N40.0 Benign prostatic hyperplasia without lower urinary tract symptoms; H81.09 Meniere's disease, unspecified ear; Z79.899 Other long term (current) drug therapy; K76.0 Fatty (change of) liver, not elsewhere classified; Z86.018 Personal history of other benign neoplasm; Z79.84 Long term (current) use of oral hypoglycemic drugs
CPT/HCPCS: 80048; 80061; 85027; 85347; 93005; 93459; C1725; C1760; C1769; C1874; C1894; C9600; Q9967

== ENCOUNTER 2024-08-18 16:41 | Emergency (ER) | payer MEDICARE, OTHER, SELFPAY ==
[2024-08-18 16:44] VITALS: BP 157/61
--- NOTE | 2024-08-18 17:22 | ED.SKININJ ---
HPI-Injury
General
Chief Complaint: Skin Surface Trauma
Source: patient
Exam Limitations: none
Time Seen by Provider: 08/18/24 17:06
Nursing documentation reviewed up to this point in time: agreed with
History of Present Illness-Injury
Is this injury a work related problem?: No
Is pt an associate of [facility]?: No
Initial Injury comments:
Cut finger with mandolin. Has a flap laceration to left distal palmar thumb. Injury occured just EXCHANGE TROUBLE SHOOTER
Past History
Past History
ED Past Medical History: CAD, GERD, HTN, Hypercholesterolemia, CO (X3) and Other ( Vertigo, constipation, hemorrhoids, stomach ulcers. Cellulitis,)
ED Past Surgical History: Cardiac (Stents, Open heart surgery, CABG) and Other (Carpal tunnel surgery. Patient has a history of rotator cuff surgery bilateral shoulder surgery, cardiac catheterization with stents,)
Social History
Tobacco: Former smoker
Alcohol: Occasional
Drug: None
Personal:
Living: with family
Employment: Employed
Family History
Family History: Hypertension
Review of Systems
Review of Systems
Allergies reviewed?: Yes
All Other Systems: ROS reviewed and negative except as documented in HPI and ROS
Constitutional: Reports no symptoms
Musculoskeletal: Reports no symptoms
Skin: Reports other (flap laceration to left distal thumb)
Neurological: Reports no symptoms
Psychiatric: Reports no symptoms
Skin Exam
Laceration
Left Distal Thumb:
Length in cm: 1.5
Orientation: C shaped
Type of Laceration: simple
Any active bleeding?: no active bleeding
Distal skin color and temperature: normal-warm & good color
Normal distal neurovascular exam: Yes
Range of motion: full
Phy Exam
General Physical Exam
General Presentation: well appearing and no apparent distress
General age: appears stated age
General Skin: warm and dry
General Habitus: normal
General Mental: alert
Musculoskeletal Exam
Musculoskeletal Exam: full ROM and neuro vasc intact
Skin Exam
Skin Exam: normal color, warm/dry and no rash
Psychiatric Exam
Psychiatric Exam: normal mood/affect
Course
Vital Signs
Initial and Last Documented VS:
Initial Vital Signs
Temp Pulse Resp BP Pulse Ox
98 F 66 16 157/61 99
08/18/24 16:44 08/18/24 16:44 08/18/24 16:44 08/18/24 16:44 08/18/24 16:44
Last Documented Vital Signs
Temp Pulse Resp BP Pulse Ox
98 F 66 16 157/61 99
08/18/24 16:44 08/18/24 16:44 08/18/24 16:44 08/18/24 16:44 08/18/24 16:44
Procedures
Laceration Closure
Left Distal Thumb:
Status of Wound: clean
Description of Wound Edges: sharp
Preparation: cleaned with saline and cleaned with Betadine
Revision/Debridement: routine- no revision
Wound exploration: explored to base- no FB
Type of Closure: Dermabond-skin glue
*Critical Care Note
Total Time (30-74mins, 75-104mins- exclusive of procedures): Not Applicable
ED Attending Note
-
Portions of this chart may have been created with voice recognition software.� Occasional wrong word or��sound alike� substitutions may have occurred due to the inherent limitations of voice recognition software.
Discharge Plan
Departure
Patient Disposition: Home (Routine Discharge)
Date of Disposition: 08/18/24
Time of Disposition: 17:21
Patient with high blood pressure during this ER visit?: No
Condition: Good
Covid-19: Not Applicable
Discharge Problem:
Avulsion of skin
Instructions: Laceration Repair With Glue (DC)
Prescriptions:
No Action
Repatha SureClick 140 MG/ML pen injector
140 mg SQ Q2W
aspirin 81 MG tablet,delayed release (DR/EC)
81 mg PO HS
diazepam 2 mg Tablet
2 - 8 mg PO TID PRN (Reason: meniere disease)
metoprolol succinate 25 mg Tablet Extended Release 24 Hr
25 mg PO BID
losartan 100 mg Tablet
100 mg PO HS
cholecalciferol (vitamin D3) 25 mcg (1,000 unit) Tablet
25 mcg PO HS
dapagliflozin propanediol [Farxiga] 10 mg Tablet
10 mg PO DAILY
oxycodone 5 mg tablet
5 mg PO Q6H PRN (Reason: Pain) Qty: 14 0RF
isosorbide mononitrate 30 mg Tablet Extended Release 24 Hr
30 mg PO DAILY
acetaminophen 650 mg Tablet Extended Release
650 mg PO PRN PRN (Reason: pain)
nitroglycerin 0.4 mg Tablet, Sublingual
0.4 mg SUBLINGUAL Q5-15M PRN (Reason: chest pain)
Excedrin Migraine 250-250-65 mg Tablet
1 tab PO PRN PRN (Reason: Vestibular Migraines)
Nurtec ODT 75 mg tablet,disintegrating
75 mg PO Q48H
Brilinta 90 mg Tablet
90 mg PO BID Qty: 180 5RF
Activity Restrictions/Additional Instructions:
Keep wound dry. Do not remove tape strips.
Interventions
Interventions:
*Risk Screen - Suicide Last Done: 08/18/24 16:47
*General Assessment Last Done: 08/18/24 17:49
*Neglect/Abuse Screening Last Done: 08/18/24 16:47
ED- Fall Risk Assessment Last Done: 08/18/24 17:49
*ED COVID-19 Vaccine History Last Done: 08/18/24 17:49
*Nursing Disposition Last Done: 08/18/24 17:49
ED-Skin Assessment Last Done: 08/18/24 17:48
Discharge Date and Time
Discharge Date/Time: 08/18/24 17:50
Print Language: CHADIAN
== END 2024-08-18 17:50 | disposition home or self-care (01) ==
LOC: EMR 16:41
PROVIDERS: EMERGENCY PHYSICIAN Emergency Medicine; FAMILY PHYSICIAN Family Medicine
DX: S61.012A Laceration without foreign body of left thumb without damage to nail, initial encounter (principal); W27.8XXA Contact with other nonpowered hand tool, initial encounter; E78.00 Pure hypercholesterolemia, unspecified; I10 Essential (primary) hypertension; I25.10 Atherosclerotic heart disease of native coronary artery without angina pectoris; I25.2 Old myocardial infarction; K21.9 Gastro-esophageal reflux disease without esophagitis; Z87.891 Personal history of nicotine dependence; Z95.1 Presence of aortocoronary bypass graft; Z95.5 Presence of coronary angioplasty implant and graft
CPT/HCPCS: 12001; 99282

== ENCOUNTER → 2024-08-20 12:35 | Outpatient (REF) | payer MEDICARE, OTHER, SELFPAY ==
[2024-08-20 13:59] LABS: Blood Urea Nitrogen 30 mg/dl (9-20); Calcium 9.7 mg/dl (8.4-10.2); Carbon Dioxide 26 mmol/L (22-30); Chloride 108 mmol/L (98-107); Glucose 119 mg/dl (70-99); Potassium 4.6 mmol/L (3.5-5.1); Sodium 143 mmol/L (135-145); eGFR 41.01
== END ==
LOC: REG 12:35
PROVIDERS: ATTENDING PHYSICIAN Family Medicine
DX: N28.9 Disorder of kidney and ureter, unspecified (principal)
CPT/HCPCS: 36415; 80048

== ENCOUNTER → 2024-10-05 06:31 | Outpatient (REF) | payer MEDICARE, OTHER, SELFPAY ==
[2024-10-05 07:08] LABS: % Basophils 0.8 % (0-2); % Eosinophils 5.5 % (0-6); % Immature Granulocytes 0.3 % (0-0.5); % Lymphocytes 46.6 % (20.5-51.1); % Monocytes 6.9 % (1.7-9.3); % Neutrophils 39.9 % (42.2-75.2); Absolute Basophils 0.1 10^3/uL (0-0.2); Absolute Eosinophils 0.4 10^3/uL (0-0.7); Absolute Lymphocytes 3.6 10^3/uL (1.2-3.4); Absolute Monocytes 0.5 10^3/uL (0.1-0.6); Absolute Neutrophils 3.1 10^3/uL (1.4-6.5); Hematocrit 44.7 % (39.0-52.0); Hemoglobin 15.3 g/dL (13.0-18.0); Mean Corp Hgb Conc. 34.2 g/dL (33.0-37.0); Mean Corpuscular Hgb 29.8 pg (27.0-31.0); Mean Platelet Volume 8.9 fL (7.4-10.4); Nucleated Red Blood Cells % 0 % (-); Platelet Count 217 10^3/uL (130-400); Red Blood Cell Count 5.14 10^6/uL (4.70-6.10); Red Cell Dist. Width 13.9 % (11.5-14.5); White Blood Cell Count 7.6 10^3/uL (4.8-10.8)
[2024-10-05 07:32] LABS: ALT (SGPT) 21 U/L (0-50); AST (SGOT) 25 U/L (17-59); Albumin 4.8 g/dl (3.5-5.0); Alkaline Phosphatase 102 U/L (38-126); Blood Urea Nitrogen 33 mg/dl (9-20); Calcium 9.5 mg/dl (8.4-10.2); Carbon Dioxide 23 mmol/L (22-30); Chloride 105 mmol/L (98-107); Glucose 143 mg/dl (70-99); Potassium 4.4 mmol/L (3.5-5.1); Sodium 141 mmol/L (135-145); Total Bilirubin 0.5 mg/dl (0.2-1.3); Total Protein 7.7 g/dl (6.3-8.2); eGFR 33.74
[2024-10-05 07:35] LABS: NT-proBNP 56.8 pg/ml
[2024-10-05 09:45] LABS: Glycohemoglobin (HgbA1c) 6.8 % (4.0-5.6)
== END ==
LOC: RAD 06:31
PROVIDERS: ATTENDING PHYSICIAN Family Medicine
DX: R06.00 Dyspnea, unspecified (principal); E11.9 Type 2 diabetes mellitus without complications
CPT/HCPCS: 36415; 71046; 80053; 83036; 83880; 85025

== ENCOUNTER → 2024-10-30 06:28 | Outpatient (REF) | payer MEDICARE, OTHER, SELFPAY | LOC: RCS 06:28 | PROVIDERS: ATTENDING PHYSICIAN Family Medicine; REFERRING PHYSICIAN Student in an Organized Health Care Education/Training Program | DX: R06.09 Other forms of dyspnea (principal) | CPT/HCPCS: 93017; J2785 ==

== ENCOUNTER → 2024-11-08 07:14 | Outpatient (REF) | payer MEDICARE, OTHER, SELFPAY | LOC: HWRCS 07:14 | PROVIDERS: ATTENDING PHYSICIAN Internal Medicine Cardiovascular Disease; FAMILY PHYSICIAN Family Medicine | DX: I35.0 Nonrheumatic aortic (valve) stenosis (principal) | CPT/HCPCS: 93306 ==

== ENCOUNTER → 2024-12-05 13:55 | Outpatient (REF) | payer MEDICARE, OTHER, SELFPAY ==
[2024-12-05 14:48] LABS: % Basophils 0.7 % (0-2); % Eosinophils 4.4 % (0-6); % Immature Granulocytes 0.1 % (0-0.5); % Lymphocytes 43.7 % (20.5-51.1); % Monocytes 7.2 % (1.7-9.3); % Neutrophils 43.9 % (42.2-75.2); Absolute Basophils 0.1 10^3/uL (0-0.2); Absolute Eosinophils 0.3 10^3/uL (0-0.7); Absolute Monocytes 0.5 10^3/uL (0.1-0.6); Hemoglobin 14.1 g/dL (13.0-18.0); Mean Corp Hgb Conc. 34.4 g/dL (33.0-37.0); Mean Corpuscular Hgb 29.4 pg (27.0-31.0); Mean Corpuscular Volume 85.6 fL (80.0-94.0); Nucleated Red Blood Cells % 0 % (-); Platelet Count 181 10^3/uL (130-400); Red Blood Cell Count 4.79 10^6/uL (4.70-6.10); Red Cell Dist. Width 13.4 % (11.5-14.5); White Blood Cell Count 6.8 10^3/uL (4.8-10.8)
[2024-12-05 15:00] LABS: ALT (SGPT) 20 U/L (0-50); AST (SGOT) 20 U/L (17-59); Albumin 4.2 g/dl (3.5-5.0); Alkaline Phosphatase 104 U/L (38-126); Blood Urea Nitrogen 23 mg/dl (9-20); Calcium 9.6 mg/dl (8.4-10.2); Carbon Dioxide 29 mmol/L (22-30); Chloride 109 mmol/L (98-107); Glucose 126 mg/dl (70-99); Potassium 4.3 mmol/L (3.5-5.1); Sodium 146 mmol/L (135-145); Total Bilirubin 0.6 mg/dl (0.2-1.3); eGFR 40.75
== END ==
LOC: REG 13:55
PROVIDERS: ATTENDING PHYSICIAN Student in an Organized Health Care Education/Training Program; FAMILY PHYSICIAN Family Medicine
DX: I25.10 Atherosclerotic heart disease of native coronary artery without angina pectoris (principal); I35.0 Nonrheumatic aortic (valve) stenosis; I10 Essential (primary) hypertension; R07.89 Other chest pain; R73.9 Hyperglycemia, unspecified; R60.0 Localized edema; Z95.1 Presence of aortocoronary bypass graft; R94.31 Abnormal electrocardiogram [ECG] [EKG]
CPT/HCPCS: 36415; 80053; 85025

== ENCOUNTER 2024-12-07 08:18 | Day surgery (SDC) | payer MEDICARE, OTHER, SELFPAY ==
[2024-12-07] VITALS (11 sets, daily range): BP systolic 142–167; BP diastolic 60–129; BMI 25.5
[2024-12-07 09:01] LABS: Glucose - Point of Care 129 mg/dl (70-99)
--- NOTE | 2024-12-07 16:39 | ITS.CL.PN ---
Pneumatic Tester - Procedure Note
Procedure
Procedure Note:
CARDIAC CATHETERIZATION REPORT
Date of Procedure: 12/07/2024
Referring: Dr. Zac Tabares MD, PhD
Indication: Accelerating angina
PROCEDURE(S)
1. left heart catheterization
2. coronary angiography
3. Bypass graft angiography
ACCESS: 6F right common femoral artery (closure: 6F AngioSealx1)
CATHETERS
1. 6F JL5
2. 6F JR4
3. 6F AR1 (best for SVG-RPDA)
4. 6F MPA
MODERATE SEDATION: 45 minutes of moderate sedation was utilized. An independent medical laboratory technician was present to assist with and help manage the patient's level of consciousness and physiologic status.
ULTRASOUND GUIDED VASCULAR ACCESS (right common femoral artery): Ultrasound was utilized for vascular access. The vessel was visualized under ultrasound and noted to be patent. An image of the vessel was stored permanently in the patient's medical
record. Under direct ultrasound guidance, vascular access was obtained using a modified Seldinger technique and a 6 Icelandic sheath was placed.
HEMODYNAMIC DATA
LV 193/15 (EDP 28) mmHg
AO 185/50 (mean 105) mmHg
CORONARY ANGIOGRAPHY
Dominance: right
LM: Moderate caliber vessel stented to the ostium. The stent appears to be mildly under expanded best seen in the LINNETTE cranial. There is excellent contrast reflux. No significant changes from prior angiography.
LAD: Large vessel giving rise to a moderate caliber D1 and moderate caliber branching D2. The GIL is grafted to the inferior branch of the D2 and there is evidence of competitive flow. The entire LAD system has diffuse moderate disease including
moderate ISR in prior stents in the proximal to mid vessel. No significant changes from prior angiography.
LCx: Moderate caliber vessel that is jailed by the left main to LAD stent. There is no evidence of significant ostial pinching. On prior angiography there was moderate ostial pinching of the jailed circumflex which is now improved.
RCA: Prior stents with ostial RESTAURANT DELIVERY DRIVER. The RPDA and RPL system is supplied by the vein graft. No significant changes from prior angiography.
BYPASS GRAFT ANGIOGRAPHY:
GIL-LAD: the GIL is taken as a pedicle and forms an anastomosis with the mid-LAD. The vessel is atretic and supplies some flow to the inferior branch of the D2. There is evidence of competitive flow from the [place] inflow. No significant changes
from prior angiography.
SVG-OM1: Patent supplying antegrade flow to the OM1. No significant changes from prior angiography.
SVG-RPDA: Patent supplying antegrade flow to the RPDA and retrograde flow to the RPL system. No significant changes from prior angiography.
RADIATION: dose 661.02 mGy; DAP 47.8819 Gy*cm2; fluoroscopy time 23.1 min
CONCLUSIONS
1. Multivessel coronary artery disease as described status post multiple PCIs and CABG with anatomy unchanged from 07/2024. No epicardial coronary artery disease to explain new chest pain symptoms.
2. Moderately elevated LV filling pressure and no aortic stenosis
RECOMMENDATIONS
1. 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 Will start diltiazem and uptitrate antianginal regimen as tolerated.
2. Aggressive secondary prevention of coronary artery disease with lifetime asa and aggressive lipid lowering.
3. Can discontinue ticagrelor in January once 6 months of therapy status post PCI are completed.
Copy to: Dr. Zac Tabares MD, PhD (physician assistant primary care); Dr. Quinn Lozano MD (PCP)
Signed: Zac Tabares MD, PhD
== END 2024-12-07 16:00 | disposition home or self-care (01) ==
LOC: CATH 08:18
PROVIDERS: ATTENDING PHYSICIAN Student in an Organized Health Care Education/Training Program; FAMILY PHYSICIAN Family Medicine
DX: I25.119 Atherosclerotic heart disease of native coronary artery with unspecified angina pectoris (principal); Z95.1 Presence of aortocoronary bypass graft; I10 Essential (primary) hypertension; Z79.82 Long term (current) use of aspirin; Z79.899 Other long term (current) drug therapy; Z79.02 Long term (current) use of antithrombotics/antiplatelets; R73.9 Hyperglycemia, unspecified; I25.2 Old myocardial infarction; Z95.5 Presence of coronary angioplasty implant and graft
CPT/HCPCS: 99152; 99153; 76937; 82962; 93459; C1760; C1769; C1894; Q9967

== ENCOUNTER → 2025-01-15 07:49 | Outpatient (REF) | payer MEDICARE, OTHER, SELFPAY | LOC: RSP 07:49 | PROVIDERS: ATTENDING PHYSICIAN Family Medicine | DX: R06.09 Other forms of dyspnea (principal) | CPT/HCPCS: 94727; 94729; 88738; 94010 ==

== ENCOUNTER → 2025-02-26 11:51 | Outpatient (REF) | payer MEDICARE, OTHER, SELFPAY | LOC: MRI 11:51 | PROVIDERS: ATTENDING PHYSICIAN Family Medicine | DX: D33.3 Benign neoplasm of cranial nerves (principal); H81.01 Meniere's disease, right ear; G43.809 Other migraine, not intractable, without status migrainosus; H90.3 Sensorineural hearing loss, bilateral | CPT/HCPCS: 70553; A9575 ==

== ENCOUNTER 2025-07-28 06:44 | Emergency (ER) | payer MEDICARE, OTHER, SELFPAY ==
[2025-07-28] VITALS (7 sets, daily range): BP systolic 108–171; BP diastolic 50–82
[2025-07-28 07:13] LABS: Hematocrit 39.5 % (39.0-52.0); Hemoglobin 13.0 g/dL (13.0-18.0); Mean Corp Hgb Conc. 32.9 g/dL (33.0-37.0); Mean Corpuscular Volume 91.4 fL (80.0-94.0); Nucleated Red Blood Cells % 0 % (-); Platelet Count 156 10^3/uL (130-400); Red Cell Dist. Width 13.3 % (11.5-14.5)
[2025-07-28 07:28] LABS: ALT (SGPT) 16 U/L (0-50); AST (SGOT) 17 U/L (17-59); Albumin 3.9 g/dl (3.5-5.0); Alkaline Phosphatase 84 U/L (38-126); Blood Urea Nitrogen 36 mg/dl (9-20); Calcium 8.7 mg/dl (8.4-10.2); Carbon Dioxide 26 mmol/L (22-30); Chloride 107 mmol/L (98-107); Glucose 176 mg/dl (70-99); Potassium 5.1 mmol/L (3.5-5.1); Sodium 136 mmol/L (135-145); Total Protein 6.6 g/dl (6.3-8.2); eGFR 26.94
[2025-07-28 07:39] LABS: Troponin I < 0.012 ng/ml
--- NOTE | 2025-07-28 08:07 | ED.GENMED ---
History of Present Illness
General
Chief Complaint: Chest Pain
Source: patient
Exam Limitations: none
Time Seen by Provider: 07/28/25 07:51
History of Present Illness
History of Present Illness:
79-year-old male with history of coronary artery disease, chronic angina, status post CABG and multiple stent placements follows with Dr. Johnson presents with onset of chest pressure and tingling in the arms and legs 20 minutes after taking a new
dose of his vasodilator ranolazine. He was instructed to take a double dose today by his rn labor delivery. He feels though he had a significant reaction to this and presented here. This started at 5 30-6 o'clock this morning he states since he has
been sleeping in the room his symptoms have improved back to his baseline. He was diaphoretic but not nauseous during this episode. There was no lightheadedness. No fevers. No other complaints at this time
Past History
Past History
ED Past Medical History: CAD, GERD, HTN, Hypercholesterolemia, CO (X3) and Other ( Vertigo, constipation, hemorrhoids, stomach ulcers. Cellulitis,)
ED Past Surgical History: Cardiac (Stents, Open heart surgery, CABG) and Other (Carpal tunnel surgery. Patient has a history of rotator cuff surgery bilateral shoulder surgery, cardiac catheterization with stents,)
Social History
Tobacco: Former smoker
Alcohol: Occasional
Drug: None
Personal:
Living: with family
Employment: Employed
Family History
Family History: Hypertension
Phy Exam
Physical Exam
Physical Exam:
General: Well-appearing male no acute respiratory distress
HEENT: Normal cephalic atraumatic
Heart: Regular rate and rhythm holosystolic murmur noted
Lungs: Clear no wheeze
Abdomen is soft nontender
Extremities: No cyanosis
Skin: Warm no rash
Scores
Heart Score for Chest Pain Patients
STEMI patient?: No
History: Slightly or Non-Suspicious
ECG: Normal
Age: >/= 65 years
Risk Factors: >/= 3 Risk Factors or History of CAD
Troponin: </= Normal Limit
Heart Score for Chest Pain Patients: 4
Heart Score Risk: 20.3% MACE over next 6 weeks
Course
Orders/Labs/Results
Orders:
Orders
07/28/25 06:50
Electrocardiogram (*1) Urgent
Reason for Study: Chest Pain
EKG- Treatment ONCE
07/28/25 07:05
Complete Blood Count/With Diff Urgent
Comprehensive Metabolic Panel Urgent
Troponin I Urgent
07/28/25 09:56
EKG [Electrocardiogram (*1)] Urgent
Reason for Study: Chest Pain
07/28/25 09:57
EKG- Treatment ONCE
07/28/25 10:03
Troponin I Urgent
Abnormal Lab Results
07/28/25
07:05
RBC 4.32 L 10^6/uL
(4.70-6.10)
MCHC 32.9 L g/dL
(33.0-37.0)
BUN 36 H mg/dl
(9-20)
Creatinine 2.4 H mg/dL
(0.7-1.3)
Glucose 176 H mg/dl
(70-99)
07/28/25 07:05
07/28/25 07:05
Vital Signs
Initial and Last Documented VS:
Initial Vital Signs
Temp Pulse Resp BP Pulse Ox
97.9 F 54 16 108/54 98
07/28/25 06:50 07/28/25 06:50 07/28/25 06:50 07/28/25 06:50 07/28/25 06:50
Last Documented Vital Signs
Temp Pulse Resp BP Pulse Ox
97.9 F 54 18 144/56 97
07/28/25 06:50 07/28/25 09:15 07/28/25 09:15 07/28/25 09:00 07/28/25 09:15
MDM/Problems Addressed
Differential Diagnosis Includes:
Patient presented with chest discomfort after taking his first double dose of ranolazine. He is currently back to his baseline symptoms without any new discomfort. Initial EKG shows sinus bradycardia without ischemic changes. Initial troponin
undetectable. Will repeat troponin.
*Pulse Oximetry
SaO2: 96
Oxygen Mode of Delivery: Room air
Patient hypoxic: no
*Critical Care Note
Total Time (30-74mins, 75-104mins- exclusive of procedures): Not Applicable
Update Note
Update Note:
Initial and repeat troponin both undetectable. Patient remains at his baseline discomfort. Discussed with cardiology. No indication for admission at this point. Will refer him to the chest pain hotline for follow-up.
ED Attending Note
-
Portions of this chart may have been created with voice recognition software.� Occasional wrong word or��sound alike� substitutions may have occurred due to the inherent limitations of voice recognition software.
Discharge Plan
Departure
Patient Disposition: Home (Routine Discharge)
Date of Disposition: 07/28/25
Time of Disposition: 10:50
Patient with high blood pressure during this ER visit?: No
Discharge Problem:
Chest pain
Instructions: Chest Pain CBC Follow Up
Prescriptions:
No Action
Repatha SureClick 140 MG/ML pen injector
140 mg SQ Q2W
aspirin 81 MG tablet,delayed release (DR/EC)
81 mg PO HS
diazepam 2 mg Tablet
2 - 8 mg PO TID PRN (Reason: meniere disease)
metoprolol succinate 25 mg Tablet Extended Release 24 Hr
25 mg PO BID
losartan 100 mg Tablet
100 mg PO HS
cholecalciferol (vitamin D3) 25 mcg (1,000 unit) Tablet
25 mcg PO HS
dapagliflozin propanediol [Farxiga] 10 mg Tablet
10 mg PO DAILY
oxycodone 5 mg tablet
5 mg PO Q6H PRN (Reason: Pain) Qty: 14 0RF
isosorbide mononitrate 30 mg Tablet Extended Release 24 Hr
30 mg PO DAILY
acetaminophen 650 mg Tablet Extended Release
650 mg PO PRN PRN (Reason: pain)
nitroglycerin 0.4 mg Tablet, Sublingual
0.4 mg SUBLINGUAL Q5-15M PRN (Reason: chest pain)
Excedrin Migraine 250-250-65 mg Tablet
1 tab PO PRN PRN (Reason: Vestibular Migraines)
Brilinta 90 mg Tablet
90 mg PO BID Qty: 180 5RF
diltiazem HCl 120 mg capsule,extended release 24hr
120 mg PO DAILY Qty: 30 5RF
Referrals:
Quinn Guillory MD [Family Provider, Family Practice]
Activity Restrictions/Additional Instructions:
Please resume your original dose of your medication. Return here for worsening symptoms otherwise follow-up with
Interventions
Interventions:
*Risk Screen - Suicide Last Done: 07/28/25 06:52
*General Assessment Last Done: 07/28/25 07:03
*Neglect/Abuse Screening Last Done: 07/28/25 06:52
*ED COVID-19 Vaccine History Last Done: 07/28/25 07:03
*ED Influenza Vaccine History Last Done: 07/28/25 07:03
ED- Cardiac Assessment Last Done: 07/28/25 07:03
Discharge Date and Time
Print Language: SINHALA
[2025-07-28 10:32] LABS: Troponin I < 0.012 ng/ml
== END 2025-07-28 11:28 | disposition home or self-care (01) ==
LOC: EMR 06:44
PROVIDERS: Physician Assistant; EMERGENCY PHYSICIAN Emergency Medicine; FAMILY PHYSICIAN Family Medicine
DX: R07.89 Other chest pain (principal); E78.00 Pure hypercholesterolemia, unspecified; I10 Essential (primary) hypertension; I25.10 Atherosclerotic heart disease of native coronary artery without angina pectoris; I25.2 Old myocardial infarction; Z87.11 Personal history of peptic ulcer disease; Z87.891 Personal history of nicotine dependence; Z95.1 Presence of aortocoronary bypass graft; Z95.5 Presence of coronary angioplasty implant and graft
CPT/HCPCS: 99284; 80053; 84484; 85025; 93005

== ENCOUNTER → 2025-08-06 14:36 | Outpatient (REF) | payer MEDICARE, OTHER, SELFPAY ==
[2025-08-06 16:12] LABS: Urine Character Clear (Clear)
[2025-08-06 16:24] LABS: Calcium 9.3 mg/dl (8.4-10.2)
[2025-08-06 16:32] LABS: Urine Red Blood Cell 0-2 /HPF (0-2); Urine Squamous Cell 0-2 /LPF (Few); Urine White Cell 0-2 /HPF (0-5)
[2025-08-06 16:53] LABS: Microalb - Urine Creatinine 91.500 mg/dl
[2025-08-06 16:57] LABS: Microalbumin, Random Urine 1.8 mg/dl (0.6-1.7)
== END ==
LOC: REG 14:36
PROVIDERS: ATTENDING PHYSICIAN Specialist; FAMILY PHYSICIAN Family Medicine
DX: E78.2 Mixed hyperlipidemia (principal); I10 Essential (primary) hypertension; N17.9 Acute kidney failure, unspecified
CPT/HCPCS: 36415; 81003; 81015; 82043; 82570; 83970

== ENCOUNTER 2025-08-23 09:28 | Day surgery (SDC) | payer MEDICARE, OTHER, SELFPAY ==
[2025-08-23] VITALS (9 sets, daily range): BP systolic 140–175; BP diastolic 53–73; BMI 25.5
[2025-08-23 12:07] LABS: Blood Urea Nitrogen 31 mg/dl (9-20); Calcium 8.9 mg/dl (8.4-10.2); Carbon Dioxide 25 mmol/L (22-30); Chloride 110 mmol/L (98-107); Estimated Creatinine Clearance 35 ml/min; Glucose 134 mg/dl (70-99); Potassium 5.0 mmol/L (3.5-5.1); Sodium 139 mmol/L (135-145); eGFR 40.75
[2025-08-23 13:48] LABS: ACT-LR - POC 274 Seconds (116-155)
[2025-08-23] MEDS: NSS 1000 IV (14:03)
--- NOTE | 2025-08-23 18:15 | ITS.CL.PN ---
Data Compiler - Procedure Note
Procedure
Procedure Note:
CARDIAC CATHETERIZATION REPORT
Date of Procedure: 08/23/2025
Referring: Dr. Zac Tabares MD, PhD
Indication: accelerating angina
PROCEDURE(S)
1. left heart catheterization
2. coronary angiography
3. bypass graft angiography
4. iFR left main
ACCESS: 6F right common femoral artery (closure: 6F AngioSealx1)
CATHETERS
1. 6F JL4
2. 6F JR4
3. 6F MPA
4. 6F JL4 guide
MODERATE SEDATION: 35 minutes of moderate sedation was utilized. An independent medical center representative was present to assist with and help manage the patient's level of consciousness and physiologic status.
HEMODYNAMIC DATA
LV 161/8 (EDP 20) mmHg
AO 152/52 (mean 85) mmHg
CORONARY ANGIOGRAPHY
Dominance: right
LM: Moderate caliber vessel stented from the LAD back to the proximal aspect. The unstented ostial left main is narrowed relative to the stented portion. No significant changes from prior angiography.
LAD: Large vessel giving rise to a moderate caliber D1 and moderate caliber branching D2. The GIL is grafted to the inferior branch of the D2 and there is evidence of competitive flow. The entire LAD system has diffuse moderate disease including
moderate ISR in prior stents in the proximal to mid vessel. No significant changes from prior angiography.
LCx: Moderate caliber vessel that is jailed by the left main to LAD stent. The OM1 is supplied via the patent vein graft. No significant changes from prior angiography.
RCA: Not selectively engaged as known to be chronically occluded proximally. The RPDA and RPL system is supplied by the vein graft. No significant changes from prior angiography.
BYPASS GRAFT ANGIOGRAPHY:
GIL-LAD: the GIL is taken as a pedicle and forms an anastomosis with the mid-LAD. The vessel is atretic and supplies some flow to the inferior branch of the D2. There is evidence of competitive flow from the pokagon inflow. No significant changes
from prior angiography.
SVG-OM1: Patent supplying antegrade flow to the OM1. No significant changes from prior angiography.
SVG-RPDA: Patent supplying antegrade flow to the RPDA and retrograde flow to the RPL system. No significant changes from prior angiography.
iFR of left main
An Omni wire was flushed and zeroed outside the body and then advanced to the left main. The wire introducer was removed and the catheter flushed with saline, after which pressure of the wire and guide were normalized. The wire was advanced to the
proximal LAD and iFR recorded at 0.96 (negative). On return to the aorta, iFR appropriately normalized to ~1.0, confirming lack of wire drift.
RADIATION: dose 464 mGy; DAP 32.3 Gy*cm2; fluoroscopy time 12.8 min
CONCLUSIONS
1. Multivessel coronary artery disease as described status post multiple PCIs and CABG with anatomy unchanged from 11/2024. No epicardial coronary artery disease to explain new chest pain symptoms.
2. Mildly elevated LV filling pressure and no aortic stenosis
RECOMMENDATIONS
1. 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
2. Aggressive secondary prevention of coronary artery disease with lifetime asa and aggressive lipid lowering.
Copy to: Dr. Zac Tabares MD, PhD (line controller); Dr. Quinn Lozano MD (PCP)
Signed: Zac Tabraes MD, PhD
== END 2025-08-23 17:00 | disposition home or self-care (01) ==
LOC: CATH 09:28
PROVIDERS: ATTENDING PHYSICIAN Student in an Organized Health Care Education/Training Program; FAMILY PHYSICIAN Family Medicine
DX: I25.110 Atherosclerotic heart disease of native coronary artery with unstable angina pectoris (principal); Z95.5 Presence of coronary angioplasty implant and graft; Z95.1 Presence of aortocoronary bypass graft; I10 Essential (primary) hypertension; I25.2 Old myocardial infarction; E78.00 Pure hypercholesterolemia, unspecified; Z87.891 Personal history of nicotine dependence
CPT/HCPCS: 93799; 99152; 99153; 80048; 85347; 93459; C1760; C1769; C1894; Q9967